=== PATIENT | male | born 1980 | race Two or more races ===

== ENCOUNTER 2024-04-06 11:17 | Emergency (ER) | payer OTHER ==
[~2024-04-06] VITALS: Ht 177.8 cm; Wt 81.3 kg
[2024-04-06 11:41] VITALS: TEMP 99.3
[2024-04-06 11:46] VITALS: BP 119/57; PULSE 73
[2024-04-06] MEDS: KETOROLAC TROMETH 60MG/2ML VIAL IM ONE (12:51)
[2024-04-06 12:59] VITALS: RESP 18; O2SAT 99
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
[2024-04-06] MEDS ORDERED: IBUP-1456 PO (13:42)
[2024-04-06] MEDS ORDERED: BACL10TA PO (13:42)
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
== END 2024-04-06 13:50 | disposition home or self-care (01) ==
LOC: ER 11:17
DX: S39.012A Strain of muscle, fascia and tendon of lower back, initial encounter (principal); S29.012A Strain of muscle and tendon of back wall of thorax, initial encounter; V43.52XA Car driver injured in collision with other type car in traffic accident, initial encounter; Y93.89 Activity, other specified; Y92.488 Other paved roadways as the place of occurrence of the external cause; Y99.8 Other external cause status
CPT/HCPCS: 72070; 72100; 96372; 99284; J1885